=== PATIENT | male | born 1990 ===

== ENCOUNTER 2024-06-14 10:33 | Day surgery (SDC) | payer OTHER, SELFPAY ==
[2024-06-14] VITALS (11 sets, daily range): BP systolic 122–143; BP diastolic 81–100; PULSE 83–101; RESP 14–16; TEMP 36.6–37.2; O2SAT 95–99; BMI 30.1
[2024-06-14] MEDS: SODIUM CHLORIDE 0.9 % (FLUSH) 10 ML SYRINGE IVF (11:20)
[2024-06-14] MEDS: OXYMETAZOLINE 0.05% NASAL SPRAY 2 SPRAY NOSTRIL-B (11:30)
[2024-06-14] MEDS: 0.9 % SODIUM CHLORIDE 500 ML 500 ML IV (12:24)
[2024-06-14] MEDS: BUPIVACAINE 0.5%/EPINEPHRINE 0.9 MG (30.9 ML) INJECTION (12:39)
[2024-06-14] MEDS: COCAINE HCL 4 % 4 ML SOLUTION NOSTRIL-B (12:39)
[2024-06-14] MEDS: MUPIROCIN 1 GM PACKET 1 APPLIC TOPICAL (12:39)
[2024-06-14] MEDS: AYR SALINE NASAL GEL 1 APPLIC NOSTRIL-B (12:40)
--- NOTE | 2024-06-14 12:53 | W.PM.ENTPROC ---
Procedure Note Date of procedure: 06/14/24 Procedure: Preoperative diagnosis nasal obstruction deviated septum, left inferior turbinate hypertrophy, left middle turbinate lloyd bullosa Postoperative diagnosis same Procedure nasal septoplasty, submucous partial resection left inferior turbinate, endoscopic partial resection left middle turbinate lloyd bullosa Under general trach anesthesia patient was prepped and draped in usual fashion the nose decongested and injected. A right hemitransfixion incision was made. Left anterior posterior tunnels were created. A vertical incision was made through the cartilage anterior to the bony junction and a right posterior tunnel created. The posterior superior right septal deflection was resected a large piece of bone trimmed returned to intraseptal space. The septum was now midline. The hemitransfixion was closed with 2 4-0 chromic sutures and stents secured with 3-0 nylon A stab incision was made in the anterior head of left inferior turbinate and a tunnel created with a Rowan dissector. The lloyd bone was outfractured and a conservative anterior submucous resection performed with Kane forceps. The Coblation was used to cauterize intramurally at the anterior head and inferior 10%. The left middle turbinate lloyd was incised along its anterior inferolateral aspect and the lloyd bone infractured. The turbinate was then crushed with the Mundelein forceps. Merocel packing was placed above the stents on each side the patient procedure well was taken recovery in satisfactory condition. Blood loss less than 10 mL. Surgeon: Fabián Adames MD
--- NOTE | 2024-06-14 13:00 | W.ANESCHARGE ---
Anesthesia Charges Start Date/Time Anesthesia Start Date: 06/14/24 Anesthesia Start Time: 12:24 Stop Date/Time Anesthesia Stop Date: 06/14/24 Anesthesia Stop Time: 13:07
--- NOTE | 2024-06-14 13:16 | W.ANESCHARGE ---
Anesthesia Charges Start Date/Time Anesthesia Start Date: 06/14/24 Anesthesia Start Time: 12:24 Stop Date/Time Anesthesia Stop Date: 06/14/24 Anesthesia Stop Time: 13:07
== END 2024-06-14 14:25 | disposition home or self-care (01) ==
LOC: OR 10:34
PROVIDERS: Visit Provider Otolaryngology
PROC: (CPT 31231; principal; 2024-06-14 12:00)
DX: J34.2 Deviated nasal septum (principal); J34.3 Hypertrophy of nasal turbinates
CPT/HCPCS: 30520; 31240; 30140; 00160; A9270; J0330; J1100; J2250; J2405; J2704; J3010; J3490; J7030; J7120